=== PATIENT | male | born 1975 | race Caucasian/White ===

== ENCOUNTER 2021-10-17 10:14 | Emergency (ER) | payer MEDICARE ==
[2021-10-17] MEDS ORDERED: FLONASE 0.05% N16 GM (12:47)
[2021-10-17] MEDS ORDERED: DELSYM30 MG/5 ML PO (12:47)
[2021-10-17] MEDS ORDERED: MEDROL DOSEPAK 24 MG PO (12:47)
== END 2021-10-17 12:53 | disposition home or self-care (01) ==
LOC: ER1 10:14
DX: U07.1 COVID-19 (principal); F17.290 Nicotine dependence, other tobacco product, uncomplicated
CPT/HCPCS: 0240U; 87081; 87880; 99283